=== PATIENT | female | born 1970 | race Caucasian/White ===

== ENCOUNTER → 2017-01-24 | Outpatient (CLI) | payer SELFPAY ==
[~2017-01-24] MED LIST: ALBU0.425 IH; GUAI400T11 PO
--- NOTE | 2017-01-25 13:39 | ECHOF ---
DATE OF PROCEDURE January 24, 2017 This is a two-dimensional echo with spectral Doppler, color-flow and M-mode. It was obtained in a patient with hypertension. Left atrial dimension is normal. Left ventricle end-diastolic dimension is normal. Left ventricular wall thickness is normal. LV systolic function is normal with ejection fraction of 70%. Right atrium is normal. Right ventricle is normal. Aortic root dimension is normal. Mitral, aortic, tricuspid, and pulmonary valves are morphologically normal with trace of mitral regurgitation, mild tricuspid regurgitation and trace of pulmonary insufficiency with mild pulmonary hypertension with estimated pulmonary artery systolic pressure of 41. There is no pericardial effusion. IMPRESSION 1. Normal LV systolic function with ejection fraction of 70%. 2. Mild tricuspid regurgitation with mild pulmonary hypertension with estimated pulmonary artery systolic pressure of 41. 3. Trace of pulmonary insufficiency. 4. Trace of mitral regurgitation. MTDD
== END ==
LOC: IMA 15:26
PROVIDERS: ATTEND Internal Medicine Cardiovascular Disease
DX: R00.2 Palpitations (principal); I27.2 Other secondary pulmonary hypertension
CPT/HCPCS: 93306